=== PATIENT | male | born 1995 | race Hispanic/Latino ===

== ENCOUNTER 2022-01-08 03:17 | Emergency (ER) | payer BC ==
[~2022-01-08] VITALS: Ht 180.3 cm; Wt 104.3 kg
[2022-01-08] MEDS ORDERED: IBUPROFEN 600 MG TAB PO STA (03:25)
[2022-01-08] MEDS ORDERED: LIDOCAINE HCL 1% LOCAL INJ 20 ML VIAL INJ ONE (03:30)
== END 2022-01-08 04:56 | disposition home or self-care (01) ==
LOC: ER 03:28
DX: S90.112A Contusion of left great toe without damage to nail, initial encounter (principal); W20.8XXA Other cause of strike by thrown, projected or falling object, initial encounter
CPT/HCPCS: 10140; 73660; 99284; J2001